=== PATIENT | female | born 1950 | race Caucasian/White ===

== ENCOUNTER 2020-06-12 05:12 | Inpatient (IN) | payer OTHER ==
[2020-06-11 12:47] VITALS: BMI 21.0
[2020-06-12] MEDS ORDERED: HYDROmorphone HCl 2 MG/ML VIAL IVPUSH ONE (14:04)
[2020-06-12] MEDS ORDERED: ALBUTEROL SO4 HFA INHALER IH PRN (14:24)
[2020-06-12] MEDS: MORPHINE SULFATE 2 MG/ML VIAL IVPUSH PRN ×2 (15:43→23:04)
[2020-06-12] MEDS: DOCUSATE SODIUM 100 MG CAPSULE (FP) PO SCH (21:24)
[2020-06-12] MEDS: ROSUVASTATIN CA 20 MG TABLET (FP) PO SCH (21:24)
[2020-06-13 07:40] LABS: BASO % 0.4 % (0-2.0); EOS % 1.3 % (0-4.5); HEMATOCRIT 42.5 % (32.4-45.2); HEMOGLOBIN 14.3 GM/dL (10.7-15.3); LYMPH % 10.8 % (8-40); MCH 32.3 pg (25.7-33.7); MCHC 33.6 g/dl (32.0-36.0); MEAN CELL VOLUME 96.2 fl (80-96); MEAN PLT VOLUME 8.1 fl (7.5-11.1); MONO % 9.5 % (3.8-10.2); PLATELET COUNT 219 K/MM3 (134-434); RBC 4.42 M/mm3 (3.60-5.2); RDW 14.5 % (11.6-15.6); WHITE BLOOD COUNT 7.2 K/mm3 (4.0-10.0)
[2020-06-13 08:08] LABS: POTASSIUM 3.7 mmol/L (3.5-5.1)
[2020-06-13 08:16] LABS: ALBUMIN 3.6 g/dl (3.4-5.0); BLOOD UREA NITROGEN 11.2 mg/dL (7-18)
[2020-06-13 08:17] LABS: BILIRUBIN,TOTAL 1.6 mg/dL (0.2-1); TOT PROT 6.4 g/dl (6.4-8.2)
[2020-06-13 08:18] LABS: CALCIUM 8.7 mg/dL (8.5-10.1)
[2020-06-13 08:19] LABS: CREATININE 0.4 mg/dL (0.55-1.3); MAGNESIUM 2.4 mg/dL (1.8-2.4); PHOSPHOROUS 3.2 mg/dL (2.5-4.9)
[2020-06-13] MEDS: FOLIC ACID 1 MG TABLET (FP) PO SCH (09:52)
[2020-06-13] MEDS: ESCITALOPRAM OXALATE 10 MG TABLET PO SCH (09:52)
[2020-06-13] MEDS: DOCUSATE SODIUM 100 MG CAPSULE (FP) PO SCH ×2 (09:52→21:19)
[2020-06-13] MEDS: CALCIUM (OYSTER SHELL) 500 MG TABLET (FP) PO SCH (09:52)
[2020-06-13] MEDS: ISOSORBIDE MONONITRATE 30 MG TAB.SR.24H (FP) PO SCH (09:52)
[2020-06-13] MEDS: MORPHINE SULFATE 2 MG/ML VIAL IVPUSH PRN ×2 (10:40→21:20)
[2020-06-13 15:40] LABS: BILIRUBIN,DIRECT 0.4 mg/dL (0.0-0.2)
[2020-06-13] MEDS: ROSUVASTATIN CA 20 MG TABLET (FP) PO SCH (21:17)
[2020-06-13] MEDS: BUDESONIDE/FORMETEROL FUMARATE 80/4.5 mcg INHALER IH SCH (21:18)
[2020-06-14 08:18] LABS: HEMATOCRIT 42.2 % (32.4-45.2); HEMOGLOBIN 14.2 GM/dL (10.7-15.3); MCH 32.5 pg (25.7-33.7); MCHC 33.7 g/dl (32.0-36.0); MEAN CELL VOLUME 96.4 fl (80-96); MEAN PLT VOLUME 8.5 fl (7.5-11.1); PLATELET COUNT 218 K/MM3 (134-434); RBC 4.38 M/mm3 (3.60-5.2); RDW 14.5 % (11.6-15.6)
[2020-06-14] MEDS: DOCUSATE SODIUM 100 MG CAPSULE (FP) PO SCH ×3 (09:13→22:55)
[2020-06-14] MEDS: ESCITALOPRAM OXALATE 10 MG TABLET PO SCH (09:13)
[2020-06-14] MEDS: FOLIC ACID 1 MG TABLET (FP) PO SCH (09:13)
[2020-06-14] MEDS: CALCIUM (OYSTER SHELL) 500 MG TABLET (FP) PO SCH (09:13)
[2020-06-14] MEDS: ISOSORBIDE MONONITRATE 30 MG TAB.SR.24H (FP) PO SCH (09:13)
[2020-06-14] MEDS: BUDESONIDE/FORMETEROL FUMARATE 80/4.5 mcg INHALER IH SCH ×2 (09:14→22:37)
[2020-06-14 09:15] LABS: POTASSIUM 4.1 mmol/L (3.5-5.1)
[2020-06-14 09:25] LABS: PHOSPHOROUS 3.9 mg/dL (2.5-4.9)
[2020-06-14 09:27] LABS: ALBUMIN 3.4 g/dl (3.4-5.0); TOT PROT 6.4 g/dl (6.4-8.2)
[2020-06-14 09:29] LABS: CREATININE 0.5 mg/dL (0.55-1.3)
[2020-06-14 09:40] LABS: CALCIUM 8.5 mg/dL (8.5-10.1); MAGNESIUM 2.3 mg/dL (1.8-2.4)
[2020-06-14 09:47] LABS: BILIRUBIN,TOTAL 1.4 mg/dL (0.2-1)
[2020-06-14] MEDS: ROSUVASTATIN CA 20 MG TABLET (FP) PO SCH (22:36)
[2020-06-14] MEDS: MORPHINE SULFATE 2 MG/ML VIAL IVPUSH PRN (22:37)
[2020-06-15 06:43] VITALS: BP 125/58; TEMP 98.6
[2020-06-15 09:06] VITALS: PULSE 99
[2020-06-15] MEDS ORDERED: PT OWN MED DRAWER 7, Y5N ONE (09:29)
[2020-06-15] MEDS: DOCUSATE SODIUM 100 MG CAPSULE (FP) PO SCH (09:31)
[2020-06-15] MEDS: ISOSORBIDE MONONITRATE 30 MG TAB.SR.24H (FP) PO SCH (09:31)
[2020-06-15] MEDS: ESCITALOPRAM OXALATE 10 MG TABLET PO SCH (09:31)
[2020-06-15] MEDS: FOLIC ACID 1 MG TABLET (FP) PO SCH (09:31)
[2020-06-15] MEDS: CALCIUM (OYSTER SHELL) 500 MG TABLET (FP) PO SCH (09:31)
[2020-06-15] MEDS: BUDESONIDE/FORMETEROL FUMARATE 80/4.5 mcg INHALER IH SCH (09:31)
== END 2020-06-15 15:39 | disposition home or self-care (01) | DRG 201 ==
LOC: JRADIR 05:12 → J2C 14:00 → J8W 15:34
PROVIDERS: ADMIT Surgery; ATTEND Internal Medicine
PROC: 0W9930Z Drainage of Right Pleural Cavity with Drainage Device, Percutaneous Approach (ICD-10-PCS; 2020-06-12)
PROC: 0WP930Z Removal of Drainage Device from Right Pleural Cavity, Percutaneous Approach (ICD-10-PCS; 2020-06-12)
PROC: 0BBF3ZX Excision of Right Lower Lung Lobe, Percutaneous Approach, Diagnostic (ICD-10-PCS; principal; 2020-06-12 11:00)
DX: J95.811 Postprocedural pneumothorax (principal); J44.9 Chronic obstructive pulmonary disease, unspecified; I10 Essential (primary) hypertension; I25.10 Atherosclerotic heart disease of native coronary artery without angina pectoris; E78.5 Hyperlipidemia, unspecified; M81.0 Age-related osteoporosis without current pathological fracture; R91.8 Other nonspecific abnormal finding of lung field; F41.8 Other specified anxiety disorders; H91.93 Unspecified hearing loss, bilateral; Q85.00 Neurofibromatosis, unspecified; Y83.8 Other surgical procedures as the cause of abnormal reaction of the patient, or of later complication, without mention of misadventure at the time of the procedure; Z85.3 Personal history of malignant neoplasm of breast; Z87.891 Personal history of nicotine dependence
CPT/HCPCS: 32405; 32557; 36415; 71045-TC-FY; 77012-TC; 80053; 82248; 83735; 84100; 85025; 85027; 88305-TC; 93005; 93010; 94010; 94760; 94761; 97116-GP; 97161-GP